=== PATIENT | male | born 1945 | race Caucasian/White ===

== ENCOUNTER → 2017-04-03 | Outpatient (CLI) | payer OTHER | END | disposition home or self-care (01) | LOC: GMAM 10:54 | PROVIDERS: ATTEND Family Medicine | DX: E55.9 Vitamin D deficiency, unspecified (principal) ==

== ENCOUNTER → 2017-04-04 | Outpatient (CLI) | payer MEDICARE | END | disposition home or self-care (01) | LOC: GMAM 14:42 | PROVIDERS: ATTEND Family Medicine | DX: E80.7 Disorder of bilirubin metabolism, unspecified (principal); B16.9 Acute hepatitis B without delta-agent and without hepatic coma ==

== ENCOUNTER → 2017-04-10 | Outpatient (CLI) | payer OTHER ==
--- NOTE | 2017-04-10 10:57 | US ---
EXAM DESCRIPTION: Liver CLINICAL HISTORY: 71 years, Male, IDIOPATHIC HYPERBILIRUBINEMIA COMPARISON: FINDINGS: Pancreas fatty appearance but otherwise unremarkable. Visualized IVC unremarkable. Patient was not tender to scanning the gallbladder. There are two small echogenic densities in the gallbladder neck region measuring seven and 6 mm. These do not clearly shadow. These are either small polyps or nonshadowing stones. Common bile duct 4 mm. Intrahepatic ducts not dilated. Liver about 15 cm in length. Coarse echogenic echotexture. Benign-appearing cyst right lobe 8 x 10 x 9 mm. Right kidney 10.6 cm. IMPRESSION: 1. Fatty liver 2. There are two small gallbladder polyps or nonshadowing stones present. Remainder the study otherwise unremarkable Electronically signed by: Pedro Gusman MD 04/10/2017 10:56 AM [facility]
== END | disposition home or self-care (01) ==
LOC: US 09:08
PROVIDERS: ATTEND Family Medicine
DX: E78.2 Mixed hyperlipidemia (principal); E11.9 Type 2 diabetes mellitus without complications; M85.89 Other specified disorders of bone density and structure, multiple sites; R31.21 Asymptomatic microscopic hematuria; E55.9 Vitamin D deficiency, unspecified; Z12.5 Encounter for screening for malignant neoplasm of prostate; E80.7 Disorder of bilirubin metabolism, unspecified; Z85.820 Personal history of malignant melanoma of skin

== ENCOUNTER → 2017-04-11 | Outpatient (CLI) | payer OTHER | END | disposition home or self-care (01) | LOC: GMAM 17:11 | PROVIDERS: ATTEND Family Medicine | DX: K76.0 Fatty (change of) liver, not elsewhere classified (principal); R94.5 Abnormal results of liver function studies ==

== ENCOUNTER 2017-04-13 08:51 | Emergency (ER) | payer OTHER ==
[2017-04-13 09:04] VITALS: BP 159/79; TEMP 97.2; O2SAT 97
[2017-04-13] MEDS ORDERED: LIDOCAINE VIS-MYLANTA 30 ML UD PO ONE (09:07)
[2017-04-13] MEDS ORDERED: SUCRALFATE 1 GM/10 ML 1 GM UD PO ONE (09:07)
--- NOTE | 2017-04-13 09:49 | RAD ---
Procedure: XR ABDOMEN 2 VIEWS SUPINE ERECT Exam Date: 04/13/2017 9:08 AM [employer] CONSULT[employer] Ordering Provider: Escobar Gamboa Clinical Indication: epigastric discomfort Comparison: None Findings: Lungs are clear. Heart size is within normal limits. Abdomen views show non-obstructive bowel gas pattern. No pneumoperitoneum. Large amount of stool is present in the colon. Postoperative changes are seen within the posterior elements of the lumbar spine.. Impression: No acute pulmonary process. Nonobstructive bowel gas pattern. Large volume of stool in the colon. Correlate for constipation. Electronically signed by: Frantz Rincon MD 04/13/2017 9:48 AM [employer]SULT[employer]
[2017-04-13] MEDS ORDERED: MAGNESIUM HYDROXIDE 30 ML UD PO ONE (09:52)
--- NOTE | 2017-04-13 09:55 | ED.PDOC ---
History of Present Illness - General Chief Complaint: Abdominal Pain Stated Complaint: epigastric pain,gas Time Seen by Provider: 04/13/17 08:58 Source: patient Exam Limitations: no limitations - History of Present Illness Initial Comments: the patient a 71-year-old male presenting to the emergency room secondary to a feeling of upper abdominal fullness and discomfort. He has had some increased belching. No vomiting. Mild nausea. No fever. He apparently had an ultrasound of his gallbladder and liver a few days ago that showed a fatty liver but noevidence of any acute gallbladder disease. No fevers. No diarrhea. He is passing gas and having bowel movements. No evidence of any peritoneal signs. No recent surgeries. Timing/Duration: 24 hours Severity: mild Improving Factors: nothing Worsening Factors: nothing Associated Symptoms: nausea/vomiting Allergies/Adverse Reactions: Allergies NO KNOWN ALLERGY Allergy (Verified 04/13/17 09:04) Home Medications: Ambulatory Orders Atorvastatin Calcium [Lipitor] 10 mg PO DAILY 04/13/17 Famotidine 20 mg PO DAILY #30 tab 04/13/17 Potassium Chloride DAILY 04/13/17 Sitagliptin-Metformin HCl [Janumet] 1 tab PO BID 04/13/17 Review of Systems - Review of Systems Constitutional: States: no symptoms reported EENTM: States: no symptoms reported Respiratory: States: no symptoms reported Cardiology: States: no symptoms reported Gastrointestinal/Abdominal: States: see HPI Genitourinary: States: no symptoms reported Musculoskeletal: States: no symptoms reported Skin: States: no symptoms reported Neurological: States: no symptoms reported Endocrine: States: no symptoms reported All other Systems: No Change from Baseline Past Medical History (General) - Patient Medical History Hx Congestive Heart Failure: No Hx Diabetes: Yes - Vaccination History Hx Influenza Vaccination: Yes Hx Pneumococcal Vaccination: Yes - Social History Hx Tobacco Use: No Family Medical History - Family History Father Family History: Unknown Living Status: Unknown Physical Exam - Physical Exam General Appearance: Alert, Comfortable, No apparent distress Eye Exam: bilateral normal Ears, Nose, Throat: hearing grossly normal Neck: full range of motion Respiratory: no respiratory distress, no accessory muscle use Cardiovascular/Chest: normal peripheral pulses, no edema, other - regular rate Peripheral Pulses: radial,right: 2+, radial,left: 2+ Gastrointestinal/Abdominal: non tender, soft, no organomegaly, other - no rebound or peritoneal signs. No obvious large palpable masses. Moderate obesity. 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 The patient will be placed on Pepcid 20 mg daily for the next month. He is given a dose of milk of magnesia here for the constipation and can take MiraLAX every other day for the next couple of weeks as well for constipation. He needs to increase his fluid intake. Increasing fiber intake would help as well, either with dietary changes or the addition of Metamucil or FiberCon. ER warnings were given for any acute worsening. - Results/Orders Results/Orders: abdominal x-ray shows significant constipation. No other obvious acute pathology. Departure - Departure Clinical Impression: Constipation Qualifiers: Constipation type: unspecified constipation type Qualified Code(s): K59.00 - Constipation, unspecified Gastritis Qualifiers: Gastritis type: unspecified gastritis Chronicity: acute Gastritis bleeding: without bleeding Qualified Code(s): K29.00 - Acute gastritis without bleeding Disposition: Discharge to Home or Self Care Condition: Fair Departure Forms: ED Discharge - Pt. Copy, Patient Portal Self Enrollment Instructions: DI for Constipation, DI for Gastritis Diet: regular diet - high-fiber low-fat Activity: increase activity as tolerated Referrals: Leif Gamboa MD [Primary Care Provider] - 1-2 Weeks Prescriptions: Famotidine 20 mg PO DAILY #30 tab Home Medications: Ambulatory Orders Atorvastatin Calcium [Lipitor] 10 mg PO DAILY 04/13/17 Famotidine 20 mg PO DAILY #30 tab 04/13/17 Potassium Chloride DAILY 04/13/17 Sitagliptin-Metformin HCl [Janumet] 1 tab PO BID 04/13/17 Additional Instructions: the patient is a 71-year-old male presenting with abdominal pain that is likely related to constipation and resultant gastritis. The patient will be placed on Pepcid 20 mg daily for the next month. He is given a dose of milk of magnesia here for the constipation and can take MiraLAX every other day for the next couple of weeks as well for constipation. He needs to increase his fluid intake. Increasing fiber intake would help as well, either with dietary changes or the addition of Metamucil or FiberCon. ER warnings were given for any acute worsening.
== END 2017-04-13 10:03 | disposition home or self-care (01) ==
LOC: ER 08:51
DX: K29.00 Acute gastritis without bleeding (principal); K59.00 Constipation, unspecified; E11.9 Type 2 diabetes mellitus without complications

== ENCOUNTER 2017-04-16 20:36 | Inpatient (IN) | payer OTHER ==
[2017-04-16] MEDS ORDERED: LIDOCAINE VIS-MYLANTA 30 ML UD PO ONE (20:56)
--- NOTE | 2017-04-16 21:48 | RAD ---
EXAM DESCRIPTION: Abdomen Series CLINICAL HISTORY: 71 years Male ,diffuse abd pain with recent coonstipation COMPARISON: None. TECHNIQUE: Five views of the abdomen were provided.. FINDINGS: There is subsegmental atelectasis at the left lung base. Postoperative changes involve the spine. There is moderate stool in the descending colon. No free air is identified beneath the hemidiaphragms. No dilated loops of bowel to suggest obstruction. No abnormal calcifications noted. IMPRESSION: No acute plain film abnormality is identified. Electronically signed by: Maximo Sarkar 04/16/2017 9:47 PM [facility]
[2017-04-16] MEDS ORDERED: PROMETHAZINE HCL INJ 25 MG in SODIUM CHLORIDE 0.9% 50ML 50 ML IVPB ONE (21:51)
[2017-04-16] MEDS ORDERED: SODIUM CHLORIDE 0.9% 1000ML 1,000 ML IVS ONE (21:51)
[2017-04-16] MEDS ORDERED: PROMETHAZINE HCL INJ 25 MG/ML VIAL ONE (21:52)
[2017-04-16] MEDS ORDERED: SODIUM CHLORIDE 0.9% 50ML 50 ML ONE (21:52)
[2017-04-16] MEDS ORDERED: INSULIN LISPRO 100 UNITS/ML PEN SUBCU ONE ×2 (21:54→23:07)
--- NOTE | 2017-04-16 22:39 | CT ---
EXAM DESCRIPTION: Abdomen/Pelvis w/Contrast CLINICAL HISTORY: 71 years Male, abd discomfort, elevated lft's, n/v COMPARISON: Abdominal radiograph same day TECHNIQUE: Contiguous axial CT images of the abdomen and pelvis were acquired after the administration of intravenous contrast. Coronal and sagittal reformatted images are provided. This exam was performed according to our departmental dose-optimization program which includes use of Automated Exposure Control, adjustment of the mA and/or kV according to patient size and/or use of iterative reconstruction technique. FINDINGS: Chest base: Mild dependent lung base atelectasis. Coronary and mitral annular calcifications. Liver: Unremarkable. Gallbladder: Unremarkable gallbladder and biliary ducts. Spleen: Unremarkable. Adrenals: Unremarkable. Pancreas: Unremarkable. Right Kidney: Two or three punctate stones are seen within the right lower pole. No hydronephrosis. No ureteral stones. Left Kidney: A single punctate nonobstructing stone is seen within the left lower pole. No hydronephrosis or ureteral stones. Aorta and branch vessels: Moderate calcific atherosclerosis of the aortoiliac vessels. Lymph nodes: No lymphadenopathy. Bowels: No obstruction. Colon: Scattered colonic diverticula. Appendix: The appendix is not confidently identified and may be surgically absent. No pericecal inflammatory changes. Peritoneum: No free air or free fluid. Pelvic organs: Unremarkable. Bladder: Unremarkable. Bones and soft tissues: Small fat-containing bilateral inguinal hernias. Postsurgical changes of the lower lumbar spine. No acute osseous abnormalities. T10 vertebral body hemangioma extending to the posterior elements. IMPRESSION: Bilateral punctate nonobstructing renal stones. No hydronephrosis or ureteral stones bilaterally. Scattered colonic diverticula. Electronically signed by: Jovani Callahan MD 04/16/2017 10:38 PM [employer] HEL[employer]
[2017-04-16] MEDS ORDERED: HYDROmorphone HCL INJ 2 MG/ML VIAL IV ONE (22:40)
[2017-04-16] MEDS ORDERED: cefTRIAXone SODIUM 1 GM in SODIUM CHL 0.9% 50ML MIN-BAG+ 50 ML IVPB ONE (22:46)
[2017-04-16] MEDS ORDERED: cefTRIAXone SODIUM 1 GM VIAL ONE (22:53)
[2017-04-16] MEDS ORDERED: SODIUM CHL 0.9% 50ML MIN-BAG+ 50 ML IVPB ONE (22:54)
[2017-04-16] MEDS ORDERED: INSULIN, REG.(HUMAN) 100 U/ML VIAL ONE (22:56)
--- NOTE | 2017-04-16 23:08 | ED.PDOC ---
History of Present Illness - General Chief Complaint: GI Problem Stated Complaint: stomach pressure, N/V Time Seen by Provider: 04/16/17 20:37 Source: patient Exam Limitations: no limitations - History of Present Illness Initial Comments: the patient is a 71-year-old male presenting to the emergency room secondary to upper abdominal pain for questionable period of time. He has had some significant discomfort at least for the last 3 days. I saw him approximately 3 days ago and he appeared to have a significant gastritis likely worsened by a very large amount of constipation based on x-ray. He was given a laxative and apparently did have a bowel movement or 2 but not much more than that. He has continued to have epigastric fullness and discomfort and has had several episodes of vomiting. No blood. No fever. Apparently 3 or 4 days before he was seen here in the emergency room he saw a primary care doctor across the street who set him up for a right upper quadrant ultrasound. The ultrasound showed some stones in the gallbladder as well as a couple of polyps but no evidence of any obstruction or inflammation. I do not have the lab work that prompted the study to compare to. The patient denies any history of hepatitis or gallbladder problems in the past. the patient's blood sugars have also apparently been somewhat elevated over the last few days. They're significantly elevated here. Timing/Duration: 1 week Severity: moderate Improving Factors: nothing Worsening Factors: nothing Associated Symptoms: loss of appetite, malaise, nausea/vomiting Allergies/Adverse Reactions: Allergies NO KNOWN ALLERGY Allergy (Verified 04/16/17 20:51) Home Medications: Ambulatory Orders Atorvastatin Calcium [Lipitor] 10 mg PO DAILY 04/13/17 Famotidine 20 mg PO DAILY #30 tab 04/13/17 Sitagliptin-Metformin HCl [Janumet] 1 tab PO BID 04/13/17 Aspirin [Aspirin Childrens] 81 mg PO DAILY 04/16/17 Calcium Carbonate-Cholecalcife [Calcium 600 + D 600-200 mg-Unit] 1 tab PO DAILY 04/16/17 Ergocalciferol [Vitamin D] 50,000 unit PO DAILY 04/16/17 Glucosamine Sulfate [Glucosamine] 1,200 mg PO DAILY 04/16/17 Losartan Potassium 50 mg PO DAILY 04/16/17 [place]-3 Fatty Acids [Fish Oil] 1 cap PO DAILY 04/16/17 Review of Systems - Review of Systems Constitutional: States: malaise EENTM: States: no symptoms reported Respiratory: States: no symptoms reported Cardiology: States: no symptoms reported Gastrointestinal/Abdominal: States: abdominal pain, constipation, nausea, vomiting Genitourinary: States: no symptoms reported Musculoskeletal: States: no symptoms reported Skin: States: no symptoms reported Neurological: States: no symptoms reported Endocrine: States: excessive sweating All other Systems: No Change from Baseline Past Medical History (General) - Patient Medical History Hx Seizures: No Hx Stroke: No Hx Dementia: No Hx Asthma: No Hx of COPD: No Hx Cardiac Disorders: No Hx Congestive Heart Failure: No Hx Pacemaker: No Hx Hypertension: No Hx Thyroid Disease: No Hx Diabetes: Yes Hx Gastroesophageal Reflux: Yes Hx Renal Disease: No Hx Cancer: No Hx of HIV: No Hx Hepatitis C: No Hx MRSA: No Surgical History: other - Vaccination History Hx Tetanus, Diphtheria Vaccination: Yes Hx Influenza Vaccination: Yes Hx Pneumococcal Vaccination: Yes - Social History Hx Tobacco Use: No Hx Chewing Tobacco Use: No Hx Alcohol Use: Yes - daily beer drinker x 2 Hx Substance Use: No Hx Substance Use Treatment: No Hx Depression: No Feels Threatened In Home Enviroment: No Feels Threatened In a Relationship: No Hx Physical Abuse: No Hx Emotional Abuse: No Hx Suspected Abuse: No Family Medical History - Family History Father Family History: Unknown Living Status: Unknown Physical Exam - Physical Exam General Appearance: Alert, Anxious Eye Exam: bilateral normal Ears, Nose, Throat: hearing grossly normal, normal ENT inspection, normal pharynx Neck: non-tender, supple Respiratory: lungs clear, normal breath sounds, no respiratory distress, no accessory muscle use Cardiovascular/Chest: normal peripheral pulses, no edema, other - regular rate Peripheral Pulses: radial,right: 2+, radial,left: 2+, dorsalis pedis,right: 2+, dorsalis pedis,left: 2+ Gastrointestinal/Abdominal: soft, other - obese. No definite focal tenderness just generalized discomfort in the upper abdomen to palpation. 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 He is now having some nausea and vomiting. He does have a mild leukocytosis along with significant hyperglycemia and what appears to be a mild to moderate hepatitis on top of his constipation. He has received 6 units of insulin lispro for the hyperglycemia. For now his oral metformin should be held. Additionally his atorvastatin should likely be held. Source of the hepatitis is uncertain at this time. Reports that his primary care did run a hepatitis panel. I do not have the results of this at this time. Hopefully results can be obtained tomorrow. He is receiving a liter of IV fluids for mild dehydration which may also help with the constipation. The patient has received a dose of an antiemetic and a dose of pain medication. He may benefit from a medication along the lines of Reglan to help with nausea and stimulate bowel activity. Mild laxatives may also prove beneficial. Admit for nausea control and pain management. Given the leukocytosis the patient has received a blood culture and is receiving a dose of Rocephin empirically at this point in time. Repeat right upper quadrant ultrasound may be warranted if the liver function test obtained here are significantly higher than they were one week ago when compared to his primary care doctors labs. - Results/Orders Results/Orders: 04/16/17 22:47 BLOOD CULTURE Stat Laboratory Results - last 24 hr 04/16/17 04/16/17 21:15 21:15 WBC 14.7 H RBC 4.18 L Hgb 14.3 Hct 42.1 MCV 100.6 H MCH 34.2 H MCHC 33.9 RDW 13.3 Plt Count 317 MPV 7.2 L Absolute Neuts (auto) 12.20 H Absolute Lymphs (auto) 1.50 Absolute Monos (auto) 1.00 H Absolute Eos (auto) 0.00 Absolute Basos (auto) 0.10 Neutrophils % 82.6 H Lymphocytes % 10.2 L Monocytes % 6.6 Eosinophils % 0.2 L Basophils % 0.4 Sodium 135 Potassium 4.1 Chloride 97 L Carbon Dioxide 29 Anion Gap 13.1 BUN 13 Creatinine 0.87 BUN/Creatinine Ratio 14.9 Random Glucose 322 H Serum Osmolality 282.6 Calcium 9.5 Total Bilirubin 2.1 H* AST 458 H ALT 217 H Alkaline Phosphatase 121 Creatine Kinase 23 L CK-MB (CK-2) 1.0 CK-MB (CK-2) % Not Reportable Troponin I < 0.02 Serum Total Protein 7.4 Albumin 4.0 Globulin 3.4 Albumin/Globulin Ratio 1.2 Amylase [address] scan of abdomen shows no definitive acute pathology. Acute abdominal series still shows persistent constipation in the distal transverse and descending colon. Departure - Departure Clinical Impression: Hepatitis Abdominal pain Qualifiers: Abdominal location: upper abdomen, unspecified Qualified Code(s): R10.10 - Upper abdominal pain, unspecified Constipation Qualifiers: Constipation type: unspecified constipation type Qualified Code(s): K59.00 - Constipation, unspecified Disposition: Admit Patient Referrals: Leif Gamboa MD [Primary Care Provider] - 1-2 Weeks Home Medications: Ambulatory Orders Atorvastatin Calcium [Lipitor] 10 mg PO DAILY 04/13/17 Famotidine 20 mg PO DAILY #30 tab 04/13/17 Sitagliptin-Metformin HCl [Janumet] 1 tab PO BID 04/13/17 Aspirin [Aspirin Childrens] 81 mg PO DAILY 04/16/17 Calcium Carbonate-Cholecalcife [Calcium 600 + D 600-200 mg-Unit] 1 tab PO DAILY 04/16/17 Ergocalciferol [Vitamin D] 50,000 unit PO DAILY 04/16/17 Glucosamine Sulfate [Glucosamine] 1,200 mg PO DAILY 04/16/17 Losartan Potassium 50 mg PO DAILY 04/16/17 [place]-3 Fatty Acids [Fish Oil] 1 cap PO DAILY 04/16/17 Decision To Admit - Decistion To Admit Decision to Admit Reason: Medical Nature Decision to Admit Date: 04/16/17 Decision to Admit Time: 23:16
[2017-04-16] MEDS ORDERED: ONDANSETRON INJ 4 MG/2 ML VIAL IV ONE (23:48)
--- NOTE | 2017-04-16 23:50 | HP ---
SUPERVISING PHYSICIAN: Leif Gamboa MD CHIEF COMPLAINT: March, abdominal pain. HISTORY OF PRESENT ILLNESS: Mr. Hylton is a 71 year-old male patient who presented to the Emergency Room secondary to upper abdominal pain across the right and upper left quadrant. This pain started three days previously in which he was actually seen in the Emergency Room on the . On the , Dr. Gamboa, Emergency Room physician, diagnosed him with significant gastritis and constipation based off x-ray. He was given a laxative and had a bowel movement or two. He continued to have epigastric fullness and discomfort and had several episodes of vomiting. He is a new patient to the clinic and seen by Dr. Gamboa and actually is being worked up for idiopathic hyperbilirubinemia and a gallbladder liver ultrasound was completed on 04/12/17 showing a fatty liver and two small gallbladder polyps or non-shadowing stone that were present. A review of the laboratory studies from the clinic showed that his bilirubin was slightly elevated at 1.7 but liver functions were within normal limits. Today in the Emergency Department laboratory studies showed that his bilirubin was significantly elevated at 2.1 with AST at 458 and ALT of 215 but alkaline phosphatase being within normal limits. His pancreatic enzymes were also within normal limits. He was showing a leukocytosis with a white count of 14,700 and a left shift. Radiographic studies completed in the Emergency Department included abdominal x-ray initially and per radiology interpretation there was no acute abnormalities identified. This was followed up with a CT of the abdomen and pelvis with contrast and per radiology interpretation there was noted bilateral punctate nonobstructive renal stones, hydronephrosis, scattered chronic diverticula and appendix was not identified but no pericecal inflammatory changes were noted. There was no free air or free fluid. The liver was noted to be unremarkable as well as the gallbladder and bile ducts and pancreas. Vital signs in the Emergency Room showed that he was afebrile with a pulse of 60, blood pressure 138/72. He does have a history of type 2 diabetes and within the last four months recently started a new medication to include Janumet. It was also noted that he had had a recent hepatitis panel completed and review of that record indicated that he was nonreactive for hepatitis A, B and C. His CBC on the showed he had a white count of 8,000 with no left shift. His blood sugar in the Emergency Room today was elevated at 322. In the Emergency Department he was given 6 units of insulin for his hypoglycemia, started on IV fluids for some mild dehydration and given Zofran and GI cocktail and Dilaudid. Given his clinical presentation of upper abdominal pains with elevated bilirubin and liver function tests along with leukocytosis, Dr. Gamboa, Emergency Room physician, requested the patient be admitted for further evaluation and close monitoring. He is admitted in stable condition. PAST MEDICAL HISTORY: 1. Hyperlipidemia. 2. Hypertension. 3. Type 2 diabetes on oral therapy. 4. Abdominal hernia. 5. 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 PAST SURGICAL HISTORY: 1. Tonsillectomy and adenoidectomy in 1952. 2. Right knee repair for fracture from a skiing accident in 1983. 3. Spacers inserted into the lumbar back in April 2013. 4. Epidural injections in the back in November of 2016. 5. Colonoscopy in 2016 noted benign polyps. CURRENT MEDICATIONS: ALLERGIES: NO KNOWN ALLERGIES FAMILY HISTORY: Father at age78 secondary to complications of stroke. Mother from natural causes at age 84. SOCIAL HISTORY: The patient just recently moved to [place] to be closer to his kids and grandkids. He moved from [place]. 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 He is . He has never smoked tobacco and notes he does drink on a regular basis which is usually a cocktail, a [place] with each meal. REVIEW OF SYSTEMS: CONSTITUTIONAL: Notes he has had some general malaise but denies any fevers or chills. HEENT: No reported headaches, vision changes, nasal congestion or sore throat. CHEST: Denies any cough, hemoptysis, shortness of breath or wheezing. CARDIOVASCULAR: Denies any chest pains, palpitations, or syncopal episodes. GASTROINTESTINAL: As noted in operative procedure. Abdomen pain with some constipation, nausea and vomiting for the last three days. GENITOURINARY: Denies any dysuria, hematuria or other urinary symptoms. NEUROLOGIC: Denies any vision changes, dizziness, syncopal episodes or neurological deficits. PHYSICAL EXAMINATION: VITAL SIGNS: Temperature 97.7, pulse 64, blood pressure 138/72, respirations 16, saturation 99% on room air. Admission weight 105.0 kg. GENERAL: On admission to the medical/surgical floor the patient appears to be in no acute distress, comfortable, well hydrated, well-nourished. He is alert but a little anxious. HEENT: Tympanic membranes clear bilaterally. Pharynx pink and moist without any lesions. NECK: Supple, non-tender with full range of motion. No jugular venous distention. CHEST: Lungs clear to auscultation without rhonchi, rales, or wheezes. CARDIOVASCULAR: Regular rate and rhythm without appreciable murmurs, rubs, or gallops. ABDOMEN: Obese with some generalized discomfort on palpation across the upper abdomen but no rebound tenderness. There is a large ventral hernia noted which is non-tender on palpation. EXTREMITIES: No cyanosis, clubbing, or edema. NEUROLOGIC: Cranial nerves II through XII are grossly intact. Facial features were symmetrical. Extraocular movements were within normal limits. There was no notable nystagmus. He was alert and oriented x 3. LABORATORY: CBC showed leukocytosis of 14,700 with a differential showing a left shift. Hemoglobin and hematocrit of 14.3 and 42.1. Platelet count was within normal limits at 317,000. RBC indices showed macrocytic, hyperchromic presentation. Chemistries showed normal electrolytes with potassium 4.1, BUN 13 , creatinine 0.87, initial glucose 322. Calcium 9.5, bilirubin elevated at 2.1 with AST of 458, ALT 217, CPK 223 with troponin less than 0.02. Amylase and lipase both within normal limits. Urinalysis pending. RADIOLOGY: Abdominal x-ray in the Emergency Room showed no acute abnormalities on plain film per radiology. CT of the abdomen and pelvis with contrast per radiology interpretation showed unremarkable liver, gallbladder, spleen, adrenals and pancreas. There was note of a bilateral punctate nonobstructive stones, no hydronephrosis or urethral stones bilaterally. There was note of scattered chronic diverticula. Chest x-ray is pending. EKG pending but a review of past EKG in the clinic noted to be on 04/04/17 showed a normal sinus rhythm without any ST or T-wave changes. ASSESSMENT: 1. Acute abdominal pain with elevated bilirubin and liver enzymes with a history of idiopathic hyperbilirubinemia with recent gallbladder ultrasound showing two small gallbladder polyps or non-shadowing stones which was completed on 04/10/17 with concerns for developing acute cholecystitis. 2. Leukocytosis secondary to #1 and possibly related to some demarginalization from nausea and vomiting and ongoing pain. 3. Obstipation with recent constipation as noted on abdominal x-rays. 4. Type 2 diabetes on oral therapy recently started within the last four months , new medication to include Janumet, Metformin combination. 5. Hypertension currently on ARB. 6. Nonalcoholic fatty liver as noted on recent ultrasound on 04/10/17. 7. Ventral hernia with no evidence of complications. PLAN: The patient will be admitted to the hospital for continuation of treatment and further workup of the underlying elevated liver functions and abdominal pain. Again, review of past medical records did show he had a hepatitis panel run within the last month which was negative for A, B and C as well as he had an ultrasound done on the that did show polyps or questionable stones but no inflammatory changes within the gallbladder. Given those findings and concern for possible acute cholecystitis with the leukocytosis, the patient was initially started on Ceftriaxone in the Emergency Department, this will be followed up with [facility] awaiting consultation with Dr. Dennis. He will be n.p.o. and on insulin sliding scale. Will plan to repeat laboratory studies in the morning including CBC, CMP and do an ultrasound of his liver/gallbladder to further evaluate previous findings. In treatment of his underlying dehydration we will start him on some IV fluids with half normal saline with 20 of potassium at 125 an hour. I have ordered a consultation with Dr. Dennis. Will anticipate his length of stay to be at least 2 to 3 days. He will be on pain control with morphine and Dilaudid as needed along with Phenergan or Zofran for any nausea or vomiting. Until discharge, we will continue to monitor and treat appropriately. #[id number] [facility]
[2017-04-17] MEDS ORDERED: MORPHINE SULFATE INJ 10 MG/ML VIAL IV PRN (00:22)
[2017-04-17] MEDS ORDERED: DEXTROSE 50% 25 GM/50 ML SYG IV PRN (00:22)
[2017-04-17] MEDS ORDERED: GLUCAGON INJ 1 MG VIAL SUBCU PRN (00:22)
[2017-04-17] MEDS ORDERED: SODIUM CHLORIDE 0.9% (FLUSH) 10 ML SYG IV PRN (00:22)
[2017-04-17] MEDS ORDERED: ONDANSETRON INJ 4 MG/2 ML VIAL IV PRN (00:22)
[2017-04-17] MEDS ORDERED: PANTOPRAZOLE SODIUM IV 40 MG VIAL IV SCH ×2 (00:30→21:00)
[2017-04-17] MEDS ORDERED: IV SET AND CAP CHANGE INJ INJ SCH (00:30)
--- NOTE | 2017-04-17 00:52 | PCM.CORE ---
Physician DVT/VTE - Nurse DVT Assessment & Total Each Risk Factor Represents 2 Points: Age 60-74 Each Risk Factor is 1 Point: Obesity (BMI >25) DVT Assessment Score: 3 - 5 or more Very High Risk Treatments: Early Ambulation *, Sequential Compression Device Pharmacological: Enoxaparin 40mg SQ Daily
[2017-04-17] MEDS: KCL 20MEQ/0.45% NS 1,000 ML IVS PRN ×2 (01:18→12:28)
[2017-04-17] MEDS ORDERED: INSULIN LISPRO 100 UNITS/ML PEN SUBCU ONE (01:58)
[2017-04-17] MEDS ORDERED: levoFLOXacin 500MG IV 500 MG in PREMIX BAG 1 BAG IVPB SCH (02:00)
[2017-04-17] MEDS ORDERED: levoFLOXacin 500MG IV 100 ML IVPB ONE (02:12)
[2017-04-17] MEDS ORDERED: metroNIDAZOLE IV PREMIX 500MG 100 ML IVPB ONE ×2 (03:30→11:48)
[2017-04-17] MEDS: metroNIDAZOLE IV PREMIX 500MG 500 MG in PREMIX BAG 1 BAG IVPB SCH ×2 (03:33→12:26)
[2017-04-17] MEDS: INSULIN LISPRO 100 UNITS/ML PEN SUBCU SCH ×2 (06:45→12:22)
--- NOTE | 2017-04-17 07:33 | RAD ---
Chest two views INDICATION: Epigastric and right upper quadrant pain COMPARISON: None IMPRESSION: Heart size normal. Left lateral costophrenic angle is not visible on the frontal film. Repeat film should be considered. No florid failure. No large infiltrate. Electronically signed by: Casey Kramer MD 04/17/2017 7:32 AM [facility]
--- NOTE | 2017-04-17 09:20 | US ---
Study: Right upper quadrant abdominal ultrasound. Indication: elevated LFTs Technical: Multiplanar, grayscale sonogram of the right upper quadrant of the abdomen obtained. Comparison: None. Findings: The liver is diffusely increased in echogenicity consistent with hepatic steatosis. The liver measures 15.5 cm in length. No definite solid renal mass identified. Gallbladder unremarkable without stones or pericholecystic edema or gallbladder wall thickening. Common bile duct measures 4.5 mm in diameter without dilatation. Impression: Hepatic steatosis and hepatomegaly. Electronically signed by: Adam Billings MD 04/17/2017 9:19 AM [facility]
[2017-04-17 12:10] VITALS: BP 116/60; TEMP 98.5; O2SAT 95
--- NOTE | 2017-04-17 13:21 | CONS ---
DATE OF CONSULTATION: 04/17/17 REFERRING: Hospitalist Service, supervising physician: Leif Gamboa MD HISTORY OF PRESENT ILLNESS: The patient is a 71-year-old male who is new to [place] and new to Dr. Gamboa who presented to the Emergency Room last night with vomiting, abdominal pain and was found to have elevated white count and bilirubin. It is significant that he was previously in the Emergency Room several days before that and had a normal white count. He still had elevated liver functions, which were being worked up by Dr. Gamboa. Ultrasound as an outpatient revealed fatty infiltration of the liver and possibly 2 small gallbladder polyps with a normal biliary tree. At that time, his bilirubin was 1.7. The patient stated he did not have discrete pain, but did feel uncomfortable and bloated. He did have nausea and vomiting one time. It is also significant that the patient has had diabetes for approximately 12 years. He denied fever, chills, dark urine or light stools. He did also have a hepatitis panel by Dr. Gamboa which was said to be nonreactive for A, B and C hepatitis. PAST MEDICAL HISTORY: 1. Hyperlipidemia. 2. Hypertension. 3. Type 2 diabetes. 3. Basal cell and squamous cell carcinomas which have been treated in the past. PAST SURGICAL HISTORY: 1. Tonsillectomy and adenoidectomy. 2. Right knee surgery for a fracture. 3. Lumbar spine surgery. 4. Epidural injections in his back. 5. Colonoscopy with polyps. CURRENT MEDICATIONS: Please see the hospital record for his medications. ALLERGIES: NO KNOWN DRUG ALLERGIES. FAMILY HISTORY: Noncontributory. Specifically, no history of biliary malignancies. SOCIAL HISTORY: The patient has moved from [place] to [place] to be near his grandchildren. He is . He has not used tobacco ever. He drinks routinely on a daily basis. REVIEW OF SYSTEMS: Specifically negative for fever and chills. No cough, shortness of breath, chest pain. He does have a problem with constipation, but no problem with nausea and vomiting prior. No history of hematemesis, hematochezia or melena. He has no significant urinary tract symptoms. PHYSICAL EXAMINATION: VITAL SIGNS: The patient is currently afebrile, normotensive. HEENT: Sclerae muddy. Mucous membranes moist. NECK: Without adenopathy. BACK: Without CVA tenderness. CHEST: Equal breath sounds bilaterally. HEART: Regular rhythm. ABDOMEN: Soft, distended. There is no discrete tenderness specifically over the gallbladder or the right upper quadrant. Bowel sounds are active. He has a large diastasis recti which is nontender. RECTAL: Deferred. EXTREMITIES: Without cyanosis, clubbing or edema. LABORATORY: This morning, white blood cell count up to 22,000 with 80% neutrophils. Hemoglobin was down from 14.3 to 12.6. Platelet count 240,000. Chemistries show potassium 4. Creatinine is up from .87 to 1.12. Blood sugar was 210 this morning. Bilirubin was up from 2.1 to 3.4. AST was from 458 to 534, ALT from 217 to 393. Amylase and lipase were both within normal limits. Ultrasound repeated this morning noted a common bile duct of 4.7 with possible mild thickening of the gallbladder wall, but no pericholecystic fluid. ASSESSMENT: Hyperbilirubinemia and leukocytosis without fever, chills, significant abdominal pain or apparent dilation of the common bile duct. It is possible the patient has early ascending cholangitis despite the lack of pain and fever. It is also possible that we are dealing with a gangrenous cholecystitis, but this is also not usually seen with elevated AST and ALT and with no tenderness in his right upper quadrant. RECOMMENDATION: The case has been discussed with Dr. Sparrow, surgeon in shifted, and Dr. Love, the dramatic director, who recommended we just continue the antibiotic and transfer him there for possible MRCP versus endoscopic ultrasound of the bile duct and/or ERCP. #[id number] [facility]
[2017-04-17] MEDS ORDERED: ENOXAPARIN SODIUM 40 MG/0.4 ML SYG SUBCU SCH (21:00)
--- NOTE | 2017-04-30 15:56 | DS ---
SUPERVISING PHYSICIAN: Jovani Hale M.D. DISCHARGE DIAGNOSIS: 1. Acute abdominal pain with elevated bilirubin and liver enzymes with a history of idiopathic hyperbilirubinemia with recent gallbladder scan that showed gallbladder polyps but no non-shadowing stones with increasing bilirubin levels and liver enzymes with concerns for ascending cholangitis versus gangrene cholecystitis. 2. Leukocytosis secondary to #1 and possibly related to some demarginalization from nausea and vomiting and ongoing pain. 3. Obstipation with recent constipation as noted on abdominal x-rays. 4. Type 2 diabetes on oral therapy recently started within the last four months on new medication to include Janumet, Metformin combination. 5. Hypertension currently on ARB. 6. Nonalcoholic fatty liver as noted on recent ultrasound on 04/10/17. 7. Ventral hernia with no evidence of complications. HISTORY OF PRESENT ILLNESS: Mr. Hylton is a 71 year-old male patient who presented to the Emergency Room secondary to upper abdominal pain across the right and upper left quadrant. This pain started three days previously in which he was actually seen in the Emergency Room on the . On the , Dr. Gamboa, Emergency Room physician, diagnosed him with significant gastritis and constipation based off x-ray. He was given a laxative and had a bowel movement. He continued to have epigastric fullness and discomfort and had several episodes of vomiting. He is a new patient to the clinic and seen by Dr. 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 A review of the laboratory studies from the clinic showed that his bilirubin was slightly elevated at 1.7 but liver functions were within normal limits. In the Emergency Department, laboratory studies showed that his bilirubin was significantly elevated at 2.1 with AST at 458 and ALT of 215 but alkaline phosphatase being within normal limits. His pancreatic enzymes were also within normal limits. He had a leukocytosis with a white count of 14,700 and a left shift. Radiographic studies completed in the Emergency Department included abdominal x-ray and per radiology interpretation there was no acute abnormalities identified. This was followed up with a CT of the abdomen and pelvis with contrast and per radiology interpretation there was noted bilateral punctate nonobstructive renal stones, hydronephrosis, scattered chronic diverticula and appendix was not identified but there were no pericecal inflammatory changes. There was also no mention of free air or fluid. The liver was noted to be unremarkable as well as the gallbladder and bile ducts and pancreas. Vital signs in the Emergency Room showed that he was afebrile with a pulse of 60, blood pressure 138/72. He does have a history of type 2 diabetes and within the last four months recently started a new medication to include Janumet. It was also noted that he had had a recent hepatitis panel completed and review of those records indicate that he was nonreactive for hepatitis A, B and C. His CBC on the showed he had a white count of 8,000 with no left shift. His blood sugar in the Emergency Room was elevated at 322. In the Emergency Department, he was given 6 units of insulin for his hypoglycemia, started on IV fluids for some mild dehydration and given Zofran and GI cocktail and Dilaudid. Given his clinical presentation of upper abdominal pains with elevated bilirubin and liver function tests along with leukocytosis, Dr. Gamboa, Emergency Room physician, requested the patient be admitted for further evaluation and close monitoring. He is admitted in stable condition. LABORATORY: CBC on admission showed 14,700 white count with a left shift. Prior to discharge and transfer to [facility], his white count had gone to 22,500, hemoglobin 12.6, hematocrit 37.1, platelet count 240. Differential did show a left shift with elevated bands of 10. Chemistries initially on admission showed normal electrolytes with potassium 4.1, glucose 322. Liver function showed bilirubin of 2.1, AST 458, ALT of 217, and CK of 23. Repeat liver enzymes prior to transfer on the morning of showed an increase in bilirubin to 3.4, AST 534 and ALT 393. Pancreatic enzymes were both within normal limits on admission and at transfer. Two sets of blood cultures were negative after 5 days. RADIOLOGY: Initially in the Emergency Department he had an abdominal x-ray and per radiology interpretation there was no acute plain film abnormality identified. This was followed-up with a CT of the abdomen with contrast and per radiology interpretation the liver, gallbladder, biliary duct, spleen, adrenals and pancreas were unremarkable. There was noted in the right kidney of 2 to 3 punctate stones. No hydronephrosis. No ureteral stones. Left kidney noted a single punctate nonobstructing stone within the left pole. No hydronephrosis or ureteral stones. Please see that final report for full details. He also had a chest x-ray and per radiology interpretation showed heart size to be within normal limits. No florid failure. No large infiltrates. He then had an ultrasound of the liver and gallbladder and per radiology interpretation was noted hepatic steatosis and hepatomegaly with the liver measuring 15 cm in length. There was no definite solid renal masses. The gallbladder was unremarkable. Common bile duct measured 4.5 mm in diameter without dilation. HOSPITAL COURSE: Mr. Hylton was admitted on 04/16/17 as noted above for abdominal pain through the E. R. He was started on IV fluids and antibiotics to include Levaquin and Flagyl, and a consultation was secured with Dr. Dennis, general surgeon. On the morning of transfer, it was noted that his liver enzymes were significantly elevated as well as his bilirubin despite fluids. His white count had elevated to 22,400. He was showing to be hemodynamically stable with a temperature of 98.5, blood pressure 116/60 with pulse 80, satting 95% on room air. Consultation with Dr. Dennis, recommendations were that the patient should be transferred for concerns for a gangrenous gallbladder versus ascending cholangitis with the need for a possible MRCP versus endoscopic ultrasound of the bile duct and/or ERCP. PLAN: The patient was transferred to [facility]. The case was discussed with Dr. Sparrow and the hospitalist accepting was Dr. Avila. The patient was transferred via ground ambulance for a higher level of care. He was in stable condition at discharge. Diet was NPO. Activity was as per [facility]. Condition at discharge was stable and guarded. #[id number] [facility]
== END 2017-04-17 14:13 | disposition short-term general hospital (02) | DRG 445 ==
LOC: ER 20:36 → OBSVTOIN 23:47 → MS 23:47
PROVIDERS: ADMIT Nurse Practitioner Family; ATTEND Nurse Practitioner Family
PROC: BW21YZZ Computerized Tomography (CT Scan) of Abdomen and Pelvis using Other Contrast (ICD-10-PCS; principal; 2017-04-16)
DX: K83.0 Cholangitis (principal); K81.0 Acute cholecystitis; E80.6 Other disorders of bilirubin metabolism; E11.65 Type 2 diabetes mellitus with hyperglycemia; I10 Essential (primary) hypertension; E78.5 Hyperlipidemia, unspecified; K59.00 Constipation, unspecified; K76.0 Fatty (change of) liver, not elsewhere classified; K43.9 Ventral hernia without obstruction or gangrene; E86.0 Dehydration; N20.0 Calculus of kidney

== ENCOUNTER → 2017-05-02 | Outpatient (CLI) | payer OTHER | END | disposition home or self-care (01) | LOC: GMAM 14:38 | PROVIDERS: ATTEND Family Medicine | DX: I48.2 Chronic atrial fibrillation (principal) ==

== ENCOUNTER → 2017-07-11 | Outpatient (CLI) | payer OTHER | LOC: GMAM 10:58 | PROVIDERS: ATTEND Family Medicine | DX: E55.9 Vitamin D deficiency, unspecified (principal) ==

== ENCOUNTER → 2017-11-27 | Outpatient (CLI) | payer OTHER | LOC: GMAM 15:31 | PROVIDERS: ATTEND Family Medicine | DX: G45.9 Transient cerebral ischemic attack, unspecified (principal) ==

== ENCOUNTER → 2018-04-02 | Outpatient (CLI) | payer OTHER | LOC: GMAM 16:59 | PROVIDERS: ATTEND Family Medicine | DX: R94.5 Abnormal results of liver function studies (principal) ==

== ENCOUNTER → 2018-04-16 | Outpatient (CLI) | payer OTHER ==
--- NOTE | 2018-04-16 09:54 | US ---
EXAM DESCRIPTION: Liver CLINICAL HISTORY: 72 years Male, ELEVATED LFTs COMPARISON: Previous sono of the liver April 17, 2017 FINDINGS: Normal caliber of the aorta. Visualized portions of the pancreas are unremarkable. The liver is hyperechoic with homogeneous texture suggesting diffuse hepatic steatosis. Liver length of 14.5 cm is normal. The right kidney measures 9.7 cm in length and appears normal. Common duct is normal in caliber 2.4 mm. Gallbladder is surgically absent. Compared to previous study April 17, 2017, the gallbladder has been removed since that time. No other change is evident. Liver length was previously measured at 15.5 cm. IMPRESSION: Fatty liver. Surgically absent gallbladder. Electronically signed by: Ilya Woodall MD 04/16/2018 9:53 AM [facility] [facility]
== END ==
LOC: US 08:22
PROVIDERS: ATTEND Family Medicine
DX: R94.5 Abnormal results of liver function studies (principal); K76.0 Fatty (change of) liver, not elsewhere classified; Z90.49 Acquired absence of other specified parts of digestive tract

== ENCOUNTER → 2018-08-20 | Outpatient (CLI) | payer OTHER ==
--- NOTE | 2018-08-20 20:57 | US ---
EXAM DESCRIPTION: Extremity,Lower RT Arteries (accession [id number]), Extremity,Lower LT Arteries (accession [id number]): Ultrasound. CLINICAL HISTORY: PERIPHERAL VASCULAR DISEASE COMPARISON: None. TECHNIQUE: Doppler evaluation of the bilateral lower extremity arterial flow waveforms and velocities. FINDINGS: Arterial waveforms in the left lower extremity are triphasic from the left common femoral artery through the left peroneal artery and biphasic in the left posterior tibial artery and dorsalis pedis artery.. Arterial waveforms in the right lower extremity are triphasic from the right common artery through the right posterior tibial artery. Biphasic in the right dorsalis pedis artery.. Comments: No plaque was seen in the bilateral lower extremities. IMPRESSION: Doppler ultrasound evaluation of the bilateral lower extremity arterial system showing no evidence of significant atherosclerotic occlusive disease. If these findings are discordant from clinical findings, consider follow-up CTA evaluation of the lower abdominal aorta and bilateral lower extremities. Electronically signed by: Maximo Tierney MD 08/20/2018 8:54 PM CDT
--- NOTE | 2018-08-20 20:57 | US ---
EXAM DESCRIPTION: Extremity,Lower RT Arteries (accession [id number]), Extremity,Lower LT Arteries (accession [id number]): Ultrasound. CLINICAL HISTORY: PERIPHERAL VASCULAR DISEASE COMPARISON: None. TECHNIQUE: Doppler evaluation of the bilateral lower extremity arterial flow waveforms and velocities. FINDINGS: Arterial waveforms in the left lower extremity are triphasic from the left common femoral artery through the left peroneal artery and biphasic in the left posterior tibial artery and dorsalis pedis artery.. Arterial waveforms in the right lower extremity are triphasic from the right common artery through the right posterior tibial artery. Biphasic in the right dorsalis pedis artery.. Comments: No plaque was seen in the bilateral lower extremities. IMPRESSION: Doppler ultrasound evaluation of the bilateral lower extremity arterial system showing no evidence of significant atherosclerotic occlusive disease. If these findings are discordant from clinical findings, consider follow-up CTA evaluation of the lower abdominal aorta and bilateral lower extremities. Electronically signed by: Maximo Tierney MD 08/20/2018 8:54 PM CDT
== END ==
LOC: US 07:50
PROVIDERS: ATTEND Family Medicine
DX: I73.89 Other specified peripheral vascular diseases (principal)

== ENCOUNTER → 2019-07-08 | Outpatient (CLI) | payer OTHER | LOC: GMAM 10:46 | PROVIDERS: ATTEND Family Medicine | DX: Z12.5 Encounter for screening for malignant neoplasm of prostate (principal); E53.8 Deficiency of other specified B group vitamins; E55.9 Vitamin D deficiency, unspecified; I10 Essential (primary) hypertension; E11.9 Type 2 diabetes mellitus without complications; E78.2 Mixed hyperlipidemia | CPT/HCPCS: 82306; 82607; G0103 ==

== ENCOUNTER → 2019-10-22 | Outpatient (CLI) | payer MEDICARE ==
--- NOTE | 2019-10-23 09:53 | MRI ---
Study: MRI of the brain. Indication: SYNCOPE AND COLLAPSE Technique: Multiplanar, multi sequence MRI of the brain obtained without intravenous contrast. Comparison: None. Findings: Tiny punctate 3 mm focus of are surgically fusion noted at the high right frontoparietal cortical junction indicating a tiny focus of acute ischemia. At the central to inferior aspect of the right frontal lobe is a prominent 3.8 severe focus of encephalomalacia with surrounding elevated T2/FLAIR signal abnormality likely reflecting a site of remote infarction. A similar appearing smaller 1.6 cm focus noted at the anterosuperior margin of the left occipital lobe. Varying degrees of hemosiderin deposition at both of these sites. No MRI evidence of acute hemorrhage, mass, mass effect, midline shift, or extra-axial fluid collection. Ventricles are normal in configuration without hydrocephalus. Patchy elevated T2/FLAIR signal abnormality is seen within the periventricular and subcortical white matter. Although nonspecific, this finding is most consistent with chronic microvascular ischemic change. Global parenchymal volume loss noted as well. Midline structures are intact. Paranasal sinuses are adequately aerated. Tiny bilateral mastoid effusions. Osseous structures and soft tissues demonstrate normal signal characteristics. Impression: Tiny focus of acute ischemia at the right frontoparietal cortical junction. 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 Comparison with prior examinations recommended. Senescent changes. Findings on this exam were relayed to Leif Gamboa at 10/23/2019 9:51 AM CDT. Electronically signed by: Adam Billings MD 10/23/2019 9:51 AM CDT
== END ==
LOC: MRI 11:46
PROVIDERS: ATTEND Family Medicine
DX: R55 Syncope and collapse (principal); I67.82 Cerebral ischemia; G93.9 Disorder of brain, unspecified; E53.8 Deficiency of other specified B group vitamins; G31.1 Senile degeneration of brain, not elsewhere classified; R07.9 Chest pain, unspecified; R10.12 Left upper quadrant pain